=== PATIENT | male | born 1940 | race Caucasian/White ===

== ENCOUNTER 2023-12-05 11:34 | Outpatient (AMB) | payer MEDICARE, SELFPAY ==
--- NOTE | 2023-12-05 11:36 | HO.NEPHOV ---
HPI HPI Comments History of Present Illness Details I had the privilege of seeing Stanislaw Zepeda, who prefers to be known as Chris in consultation for his chronic kidney disease and labile hypertension. He is known to have hypertension for a long time. He has been taking metoprolol succinate 25 mg daily and amlodipine 5 mg daily. His serum potassium has been 5. He keeps track of his serum creatinine and blood pressure for the last 15 years. His serum creatinine has gone up a bit and his blood pressure control has been labile lately. He had multiple tick bites recently and he thinks his blood pressure has been higher since those tick bites. He has no history of hypokalemia, uncontrolled thyroid disorders, hypercalcemia, obstructive sleep apnea, hematuria or pedal edema. He has history of nephrolithiasis. He does not take any excessive nonsteroidal anti-inflammatories. He is cautious with his sodium in the diet. He has no history of coronary artery disease, carotid stenosis, congestive heart failure, CVA, peripheral arterial disease. He is compliant with his medications. He has a renal cyst which he undergoes surveillance ultrasound and it has unchanged its characteristics. He is quite active. He feels well. [facility] Medical History (Updated 12/05/23 @ 13:42 by Mati Jerez MD) History of kidney stones Hypertension Hyperlipidemia History of colon polyps Chronic kidney disease, stage 3 Surgical History (Updated 12/05/23 @ 11:45 by Mine Smith MA) H/O colonoscopy Family History (Updated 12/05/23 @ 11:45 by Mine Smith MA) Father Diabetes Pancreatic cancer Social History (Updated 12/05/23 @ 11:46 by Mine Smith MA) Alcohol intake: current Patient Tobacco Use Status: Never used Tobacco Vital Signs 12/05/23 11:39 Height 5 ft 7 in Weight 186 lb 2 oz BMI 29.1 BP 150/70 H Blood Pressure Location Rt brachial Position Sitting Pulse 71 Pulse Source Pulse Oximeter Pulse Oximetry (%) 96 Oxygen Delivery Method Room Air Physical Exam Vital Signs: Last Vital Signs Pulse 71 12/05/23 11:39 BP 150/70 H 12/05/23 11:39 Pulse Ox 96 12/05/23 11:39 Oxygen Delivery Method Room Air 12/05/23 11:39 BMI result Body Mass Index 29.1 Const General: comfortable and no acute distress Orientation/consciousness: patient oriented x3 HEENT Head: Yes normocephalic Mouth: Normal oral and palatal mucosa present Eyes EOM: EOMs intact bilaterally Neck Neck: Yes supple Resp Auscultation: clear to auscultation bilaterally Cardio Jugular venous distension: no JVD Rate: regular rate GI Palpation (GI): Soft to palpation Auscultation: normal bowel sounds General: Yes no CVA tenderness Back/Spine/Pelvis Back: no CVA tenderness Skin General skin exam: no rashes or lesions noted Neuro General: patient oriented x3 and moves all extremities Extrem General: Yes no pedal edema Assessment & Plan Assessment & Plan (1) Chronic kidney disease, stage 3: Code(s): N18.30 - Chronic kidney disease, stage 3 unspecified Qualifiers: Chronic kidney disease stage 3 subtype: stage 3a (GFR 45-59) Qualified Code(s): N18.31 - Chronic kidney disease, stage 3a (2) Hypertension: Code(s): I10 - Essential (primary) hypertension Qualifiers: Hypertension type: primary hypertension Qualified Code(s): I10 - Essential (primary) hypertension (3) Renal cyst: Code(s): N28.1 - Cyst of kidney, acquired Plan Chris has hypertension for a long time. 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 He never had a Doppler of renal arteries which I ordered. His serum potassium is 5. I increased his amlodipine to 10 mg. I also ordered 24 hour urine collection for creatinine clearance. He most likely will need ultrasound of the renal arteries in the future which I plan to order 90s after next visit. I will not initiate him on any CALISTA inhibitor or ARB unless his serum potassium is lower. He has not known to have congestive heart failure or coronary artery disease. He should be on a low-sodium diet given history of hypertension and nephrolithiasis. He may have to initiate him on chlorthalidone which should benefit his blood pressure and renal stones. All these have been discussed in detail. Answered all his questions. Follow-up appointment given. Orders: Orders Creatinine Clearance Urine Today N18.30 - Chronic kidney disease, stage 3 unspecified Electrolytes Today N18.30 - Chronic kidney disease, stage 3 unspecified Creatinine Today N18.30 - Chronic kidney disease, stage 3 unspecified Blood Urea Nitrogen Today N18.30 - Chronic kidney disease, stage 3 unspecified Medications: New amlodipine 10 mg PO DAILY 90 tabs 4RF 90 days Coding Level of Care Code New Pt Level 4 (00599) Diagnoses Stage 3a chronic kidney disease N18.31 Chronic kidney disease stage 3 subtype: stage 3a (GFR 45-59) Primary hypertension I10 Hypertension type: primary hypertension Renal cyst N28.1 Results Reviewed Nephrology Results: No Data to Display
[2023-12-05 11:39] VITALS: BP 150/70; PULSE 71; O2SAT 96; BMI 29.1
== END 2023-12-05 12:26 | disposition home or self-care (01) ==
PROVIDERS: PCP Family Medicine; Referring Provider Family Medicine; Visit Provider Internal Medicine Nephrology
DX: N18.31 Chronic kidney disease, stage 3a (principal); I10 Essential (primary) hypertension; N28.1 Cyst of kidney, acquired
CPT/HCPCS: 99204

== ENCOUNTER → 2023-12-05 11:34 | Outpatient (BNVA) | payer MEDICARE, SELFPAY | PROVIDERS: PCP Family Medicine; Referring Provider Family Medicine; Visit Provider Internal Medicine Nephrology | DX: I12.9 Hypertensive chronic kidney disease with stage 1 through stage 4 chronic kidney disease, or unspecified chronic kidney disease (principal); N18.31 Chronic kidney disease, stage 3a; N28.1 Cyst of kidney, acquired | CPT/HCPCS: 99202 ==

== ENCOUNTER 2024-01-02 10:48 | Outpatient (AMB) | payer MEDICARE, SELFPAY ==
--- NOTE | 2024-01-02 11:18 | HO.NEPHOV ---
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 He is known to have hypertension for a long time. He has been taking metoprolol succinate 25 mg daily and amlodipine 5 mg daily. Dose of amlodipine had been increased to 10 mg at the last visit and his blood pressure is currently at goal. His serum potassium has been 5. He keeps track of his serum creatinine and blood pressure for the last 15 years. His serum creatinine has settled to baseline. His creatinine clearance decent. He has no history of hypokalemia, uncontrolled thyroid disorders, hypercalcemia, obstructive sleep apnea, hematuria or pedal edema. He has history of nephrolithiasis. He does not take any excessive nonsteroidal anti-inflammatories. He is cautious with his sodium in the diet. He has no history of coronary artery disease, carotid stenosis, congestive heart failure, CVA, peripheral arterial disease. He is compliant with his medications. He has a renal cyst which he undergoes surveillance ultrasound and it has unchanged its characteristics. He is quite active. He feels well. [facility] Medical History (Updated 12/05/23 @ 13:42 by Mati Jerez MD) History of kidney stones Hypertension Hyperlipidemia History of colon polyps Chronic kidney disease, stage 3 Surgical History H/O colonoscopy Family History Father Diabetes Pancreatic cancer Social History Alcohol intake: current Patient Tobacco Use Status: Never used Tobacco Physical Exam Vital Signs: Last Vital Signs Pulse 66 01/02/24 11:19 BP 120/70 01/02/24 11:19 Pulse Ox 97 01/02/24 11:19 Oxygen Delivery Method Room Air 01/02/24 11:19 BMI result Body Mass Index 29.3 Const General: comfortable and no acute distress Orientation/consciousness: patient oriented x3 HEENT Head: Yes normocephalic Mouth: Normal oral and palatal mucosa present Eyes EOM: EOMs intact bilaterally Neck Neck: Yes supple Resp Auscultation: clear to auscultation bilaterally Cardio Jugular venous distension: no JVD Rate: regular rate GI Palpation (GI): Soft to palpation Auscultation: normal bowel sounds General: Yes no CVA tenderness Back/Spine/Pelvis Back: no CVA tenderness Skin General skin exam: no rashes or lesions noted Neuro General: patient oriented x3 and moves all extremities Extrem General: Yes no pedal edema Results Reviewed Nephrology Results: No Data to Display Assessment & Plan Assessment & Plan (1) Chronic kidney disease, stage 3: Code(s): N18.30 - Chronic kidney disease, stage 3 unspecified Category: Medical Qualifiers: Chronic kidney disease stage 3 subtype: stage 3a (GFR 45-59) Qualified Code(s): N18.31 - Chronic kidney disease, stage 3a (2) Hypertension: Code(s): I10 - Essential (primary) hypertension Category: Medical Qualifiers: Hypertension type: primary hypertension Qualified Code(s): I10 - Essential (primary) hypertension (3) Renal cyst: Code(s): N28.1 - Cyst of kidney, acquired Category: Medical Plan Chris has hypertension for a long time. 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 He never had a Doppler of renal arteries. His serum potassium is 5. His blood pressure is at goal and he should continue current dose of antihypertensive medications. His24 hour urine collection for creatinine clearance was reviewed. He most likely will need ultrasound of the renal arteries in the future which I plan to order with time. I will not initiate him on any CALISTA inhibitor or ARB unless as his serum potassium was high normal. He has not known to have congestive heart failure or coronary artery disease. He should be on a low-sodium diet given history of hypertension and nephrolithiasis. He may have to initiate him on chlorthalidone which should benefit his blood pressure and renal stones. I shall arrange a follow-up ultrasound with time to follow-up his renal cyst. All these have been discussed in detail. Answered all his questions. Follow-up appointment given Orders: Orders Electrolytes Today I10 - Essential (primary) hypertension, N18.31 - Chronic kidney disease, stage 3a, N28.1 - Cyst of kidney, acquired Creatinine Today I10 - Essential (primary) hypertension, N18.31 - Chronic kidney disease, stage 3a, N28.1 - Cyst of kidney, acquired Blood Urea Nitrogen Today I10 - Essential (primary) hypertension, N18.31 - Chronic kidney disease, stage 3a, N28.1 - Cyst of kidney, acquired Coding Level of Care Code Est Pt Level 4 (52535) Diagnoses Stage 3a chronic kidney disease N18.31 Chronic kidney disease stage 3 subtype: stage 3a (GFR 45-59) Primary hypertension I10 Hypertension type: primary hypertension Renal cyst N28.1
[2024-01-02 11:19] VITALS: BP 120/70; PULSE 66; O2SAT 97; BMI 29.3
== END 2024-01-02 11:47 | disposition home or self-care (01) ==
PROVIDERS: PCP Family Medicine; Visit Provider Internal Medicine Nephrology
DX: N18.31 Chronic kidney disease, stage 3a (principal); I10 Essential (primary) hypertension; N28.1 Cyst of kidney, acquired
CPT/HCPCS: 99214

== ENCOUNTER → 2024-01-02 10:48 | Outpatient (BNVA) | payer MEDICARE, SELFPAY | PROVIDERS: PCP Family Medicine; Visit Provider Internal Medicine Nephrology | DX: I12.9 Hypertensive chronic kidney disease with stage 1 through stage 4 chronic kidney disease, or unspecified chronic kidney disease (principal); N18.31 Chronic kidney disease, stage 3a; N28.1 Cyst of kidney, acquired | CPT/HCPCS: 99212 ==

== ENCOUNTER 2024-05-07 09:37 | Outpatient (AMB) | payer MEDICARE, SELFPAY ==
[2024-05-07 09:43] VITALS: BP 120/70; PULSE 67; O2SAT 96; BMI 29.0
--- NOTE | 2024-05-07 09:43 | HO.NEPHOV ---
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 He is known to have hypertension for a long time. his blood pressure is currently at goal on current medications. He keeps track of his serum creatinine and blood pressure for the last 15 years. His serum creatinine has settled to baseline. His creatinine clearance is decent. He has no history of hypokalemia, uncontrolled thyroid disorders, hypercalcemia, obstructive sleep apnea, hematuria or pedal edema. He has history of nephrolithiasis. He does not take any excessive nonsteroidal anti-inflammatories. He is cautious with his sodium in the diet. He has no history of coronary artery disease, carotid stenosis, congestive heart failure, CVA, peripheral arterial disease. He is compliant with his medications. He has a renal cyst which he undergoes surveillance ultrasound and it has unchanged its characteristics. He is quite active. He feels well. [facility] Medical History (Updated 12/05/23 @ 13:42 by Mati Jerez MD) History of kidney stones Hypertension Hyperlipidemia History of colon polyps Chronic kidney disease, stage 3 Surgical History H/O colonoscopy Family History Father Diabetes Pancreatic cancer Social History Alcohol intake: current Patient Tobacco Use Status: Never used Tobacco Review of Systems Const All systems reviewed & are unremarkable except as noted in HPI and below Physical Exam Vital Signs: Last Vital Signs Pulse 67 05/07/24 09:43 BP 142/70 H 05/07/24 09:43 Pulse Ox 96 05/07/24 09:43 Oxygen Delivery Method Room Air 05/07/24 09:43 BMI result Body Mass Index 29.0 Const General: comfortable and no acute distress Orientation/consciousness: patient oriented x3 HEENT Head: Yes normocephalic Mouth: Normal oral and palatal mucosa present Eyes EOM: EOMs intact bilaterally Neck Neck: Yes supple Resp Auscultation: clear to auscultation bilaterally Cardio Jugular venous distension: no JVD Rate: regular rate GI Palpation (GI): Soft to palpation Auscultation: normal bowel sounds General: Yes no CVA tenderness Back/Spine/Pelvis Back: no CVA tenderness Skin General skin exam: no rashes or lesions noted Neuro General: patient oriented x3 and moves all extremities Extrem General: Yes no pedal edema Results Reviewed Nephrology Results: No Data to Display Assessment & Plan Assessment & Plan (1) Chronic kidney disease, stage 3: Code(s): N18.30 - Chronic kidney disease, stage 3 unspecified Category: Medical Qualifiers: Chronic kidney disease stage 3 subtype: stage 3a (GFR 45-59) Qualified Code(s): N18.31 - Chronic kidney disease, stage 3a (2) Hypertension: Code(s): I10 - Essential (primary) hypertension Category: Medical Qualifiers: Hypertension type: primary hypertension Qualified Code(s): I10 - Essential (primary) hypertension (3) Renal cyst: Code(s): N28.1 - Cyst of kidney, acquired Category: Medical Plan Chris has hypertension for a long time. 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 His blood pressure is at goal and he should continue current dose of antihypertensive medications. His 24 hour urine collection for creatinine clearance was reviewed. He most likely will need ultrasound of the renal arteries in the future which I plan to order with time. He has not known to have congestive heart failure or coronary artery disease. He should be on a low-sodium diet given history of hypertension and nephrolithiasis. He may have to initiate him on chlorthalidone which should benefit his blood pressure and renal stones. I shall arrange a follow-up ultrasound with time to follow-up his renal cyst. All these have been discussed in detail. Answered all his questions. Follow-up appointment given Orders: Orders Creatinine Today I10 - Essential (primary) hypertension, N18.31 - Chronic kidney disease, stage 3a, N28.1 - Cyst of kidney, acquired Blood Urea Nitrogen Today I10 - Essential (primary) hypertension, N18.31 - Chronic kidney disease, stage 3a, N28.1 - Cyst of kidney, acquired Electrolytes Today I10 - Essential (primary) hypertension, N18.31 - Chronic kidney disease, stage 3a, N28.1 - Cyst of kidney, acquired Coding Level of Care Code Est Pt Level 4 (04555) Diagnoses Stage 3a chronic kidney disease N18.31 Chronic kidney disease stage 3 subtype: stage 3a (GFR 45-59) Primary hypertension I10 Hypertension type: primary hypertension Renal cyst N28.1
== END 2024-05-07 10:06 | disposition home or self-care (01) ==
PROVIDERS: PCP Family Medicine; Visit Provider Internal Medicine Nephrology
DX: N18.31 Chronic kidney disease, stage 3a (principal); I10 Essential (primary) hypertension; N28.1 Cyst of kidney, acquired
CPT/HCPCS: 99214

== ENCOUNTER → 2024-05-07 09:37 | Outpatient (BNVA) | payer MEDICARE, SELFPAY | PROVIDERS: PCP Family Medicine; Visit Provider Internal Medicine Nephrology | DX: I12.9 Hypertensive chronic kidney disease with stage 1 through stage 4 chronic kidney disease, or unspecified chronic kidney disease (principal); N18.31 Chronic kidney disease, stage 3a; N28.1 Cyst of kidney, acquired | CPT/HCPCS: 99212 ==

== ENCOUNTER 2025-01-14 14:02 | Outpatient (AMB) | payer MEDICARE, SELFPAY ==
--- OUTSIDE RECORDS SUMMARY | 2025-01-14 14:04 | XMS_ITS | Clinical Summary ---
Author Organization [facility] [address] Address [address] [place] [address] Phone Care Team Providers Care Marketing Manager Name Role Phone Joel Dick DO Primary Care Provider [phone] Encounters Date Type Department Care Team Description 01/07/2025 Telephone Gastroenterology - [address] [id number] Nehemias Perez PA MRI RECALL from Last 3 Months Social History Tobacco Use Types Packs/Day Years Used Date Smoking Tobacco: Never Assessed Sex and Gender Information Value Date Recorded Sex Assigned at Male 01/07/2025 9:37 AM EDT Legal Sex Male 8:30 PM EST Gender Identity Male 01/07/2025 9:37 AM EDT Sexual Orientation Not on file Plan of Treatment Health Maintenance Due Date Last Done Comments DTaP,Tdap,and Td Vaccines (1 - Tdap) 1961 Pneumococcal Vaccine: 50+ Ye ars (1 of 1 - PCV) 01/16/1992 Zoster Vaccines (1 of 2) 01/16/1992 RSV Immunization Adult Patie nts (1 - 1-dose 75+ series) 2017 Cholesterol Screening (Lipid Panel) 07/27/2022 Depression Screening 07/27/2022 Falls Risk Assessment 07/27/2022 Medicare Annual Wellness Visit 07/27/2022 Social Influencers of Health Screening 07/27/2022 COVID-19 Vaccine (1 - 2023-2 5 season) 2024 Influenza Vaccine (Season Ended) 2025 HIB Vaccines Aged Out No longer eligi ble based on patient's age to complete this topic HPV Vaccines Aged Out No longer eligi ble based on patient's age to complete this topic Hepatitis A Vaccines Aged Out No long er eligible based on patient's age to complete this topic Hepatitis B Vaccines Aged Out No long er eligible based on patient's age to complete this topic IPV Vaccines Aged Out No longer eligi ble based on patient's age to complete this topic MMR Vaccines Aged Out No longer eligi ble based on patient's age to complete this topic Meningococcal ACWY Vaccine Aged Out N o longer eligible based on patient's age to complete this topic Meningococcal B Vaccine Aged Out No l onger eligible based on patient's age to complete this topic RSV Immunization Patients Un bharti 20 months Aged Out No longer eligible b ased on patient's age to complete this topic Varicella Vaccines Aged Out No longer eligible based on patient's age to complete this topic Insurance MEDICARE [facility] Care Teams Marketing Manager Relationship Specialty Start Date End Date Joel Dick DO [address] [place] [phone] PCP - General Family Medicine 01/07/25
--- NOTE | 2025-01-14 14:25 | HO.NEPHOV ---
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 He is known to have hypertension for a long time. his blood pressure is currently at goal on current medications. He keeps track of his serum creatinine and blood pressure for the last 15 years. He has no history of hypokalemia, uncontrolled thyroid disorders, hypercalcemia, obstructive sleep apnea, hematuria or pedal edema. He has history of nephrolithiasis. He does not take any excessive nonsteroidal anti-inflammatories. He is cautious with his sodium in the diet. He has no history of coronary artery disease, carotid stenosis, congestive heart failure, CVA, peripheral arterial disease. He is compliant with his medications. He has a renal cyst which he undergoes surveillance ultrasound and it has unchanged its characteristics. He is quite active. He feels his head is foggy after taking these BP medications and wants the dose reduced. He otherwise feels well. [facility] Medical History (Updated 12/05/23 @ 13:42 by Mati Jerez MD) History of kidney stones Hypertension Hyperlipidemia History of colon polyps Chronic kidney disease, stage 3 Surgical History H/O colonoscopy Family History Father Diabetes Pancreatic cancer Social History Alcohol intake: current Patient Tobacco Use Status: Never used Tobacco Review of Systems Const All systems reviewed & are unremarkable except as noted in HPI and below Physical Exam Vital Signs: Last Vital Signs Pulse 81 01/14/25 14:28 BP 120/70 01/14/25 14:28 Pulse Ox 96 01/14/25 14:28 Oxygen Delivery Method Room Air 01/14/25 14:28 BMI result Body Mass Index 29.1 Const General: comfortable and no acute distress Orientation/consciousness: patient oriented x3 HEENT Head: Yes normocephalic Mouth: Normal oral and palatal mucosa present Eyes EOM: EOMs intact bilaterally Neck Neck: Yes supple Resp Auscultation: clear to auscultation bilaterally Cardio Jugular venous distension: no JVD Rate: regular rate GI Palpation (GI): Soft to palpation Auscultation: normal bowel sounds General: Yes no CVA tenderness Back/Spine/Pelvis Back: no CVA tenderness Skin General skin exam: no rashes or lesions noted Neuro General: patient oriented x3 and moves all extremities Extrem General: Yes no pedal edema Results Reviewed Nephrology Results: No Data to Display Assessment & Plan Assessment & Plan (1) Chronic kidney disease, stage 3: Code(s): N18.30 - Chronic kidney disease, stage 3 unspecified Category: Medical Qualifiers: Chronic kidney disease stage 3 subtype: stage 3a (GFR 45-59) Qualified Code(s): N18.31 - Chronic kidney disease, stage 3a (2) Hypertension: Code(s): I10 - Essential (primary) hypertension Category: Medical Qualifiers: Hypertension type: primary hypertension Qualified Code(s): I10 - Essential (primary) hypertension Plan Chris has hypertension for a long time. 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 His blood pressure is at goal and he should continue current dose of antihypertensive medications. His 24 hour urine collection for creatinine clearance was reviewed. He most likely will need ultrasound of the renal arteries in the future which I plan to order with time. He has not known to have congestive heart failure or coronary artery disease. He should be on a low-sodium diet given history of hypertension and nephrolithiasis. He may have to initiate him on chlorthalidone which should benefit his blood pressure and renal stones. I shall arrange a follow-up ultrasound with time to follow-up his renal cyst. I reduced his Amlodipine to 5 mg daily given head fogginess with all these BP medications. All these have been discussed in detail. Answered all his questions. Follow-up appointment given Orders: Orders Blood Urea Nitrogen 3 Months I10 - Essential (primary) hypertension, N18.31 - Chronic kidney disease, stage 3a Electrolytes 3 Months I10 - Essential (primary) hypertension, N18.31 - Chronic kidney disease, stage 3a Creatinine 3 Months I10 - Essential (primary) hypertension, N18.31 - Chronic kidney disease, stage 3a Coding Level of Care Code Est Pt Level 4 (63342) Diagnoses Stage 3a chronic kidney disease N18.31 Chronic kidney disease stage 3 subtype: stage 3a (GFR 45-59) Primary hypertension I10 Hypertension type: primary hypertension
[2025-01-14 14:28] VITALS: BP 120/70; PULSE 81; O2SAT 96; BMI 29.1
== END 2025-01-14 14:57 | disposition home or self-care (01) ==
LOC: HO.HKA 14:02
PROVIDERS: PCP Family Medicine; Visit Provider Internal Medicine Nephrology
DX: N18.31 Chronic kidney disease, stage 3a (principal); I10 Essential (primary) hypertension
CPT/HCPCS: 99214

== ENCOUNTER → 2025-01-14 14:02 | Outpatient (BNVA) | payer MEDICARE, SELFPAY | PROVIDERS: PCP Family Medicine; Visit Provider Internal Medicine Nephrology | DX: I12.9 Hypertensive chronic kidney disease with stage 1 through stage 4 chronic kidney disease, or unspecified chronic kidney disease (principal); N18.31 Chronic kidney disease, stage 3a; I73.9 Peripheral vascular disease, unspecified; Z86.73 Personal history of transient ischemic attack (TIA), and cerebral infarction without residual deficits | CPT/HCPCS: 99212 ==

== ENCOUNTER 2025-04-15 11:14 | Outpatient (AMB) | payer MEDICARE, SELFPAY ==
--- OUTSIDE RECORDS SUMMARY | 2025-04-15 11:21 | XMS_ITS | Clinical Summary ---
Author Organization [facility] [address] [facility] Address [address] [place] [address] Phone Care Team Providers Care Tobacco Stemmer Machine Name Role Phone Dick, Gary Primary Care Provider [phone] Encounters Date Type Department Care Team Description 03/28/2025 8:57 AM EDT - 03/28/2025 11:59 PM EDT Hospital Encounter [facility] MRI [address] [place] [address] Pancreatic lesion Discharge Disposition: Home or Self Care from Last 3 Months Social History Tobacco [...] series) 2017 Cholesterol Screening (Lipid Panel) 07/27/2022 Falls Risk Assessment 07/27/2022 Medicare Annual Wellness Visit 07/27/2022 Social Influencers of Health Screening 07/27/2022 COVID-19 Vaccine (1 - 2023-2 5 season) 2024 Depression Screening 08/25/2024 Hypertension/CHF/CAD Annual BMP Blood Test 03/28/2025 Influenza Vaccine (#1) 2025 HIB Vaccines Aged Out No longer [...] on patient's age to complete this topic Procedures Procedure Name Priority Date/Time Associated Diagnosis Comments MR ABDOMEN WO AND W CONTRAST Routine 03/28/2025 10:38 AM EDT Pancreatic lesion from Last 3 Months Results * MR Abdomen wo and w Contrast (03/28/2025 10:38 AM EDT) Anatomical Region Laterality Modality Body Magnetic Resonan ce 04/02/2025 8:47 AM EDT Impressions 04/02/2025 9:08 AM EDT No significant interval change in several nonenhancing fluid signal lesions in the pancreas. 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 Guidelines recommend biennial follow-up of these lesions in patients over 80 years of age for a total of 4 years. -------- FINAL REPORT -------- Dictated By: Marshall Jeff Dictated Date: 04/02/2025 08:47 ET Assigned Physician: Marshall Jeff Reviewed and Electronically Signed By: Marshall Jeff Signed Date: 04/02/2025 09:08 ET Workstation ID: [id number] Transcribed By: Self Edit Transcribed Date: 04/02/2025 09:00 ET Narrative 04/02/2025 9:08 AM EDT PROCEDURE: MRI of the abdomen with intravenous contrast. HISTORY: PANCREATIC CYSTIC LESIONS. TECHNIQUE: Multiplanar multisequence MRI of the abdomen with and without intravenous contrast. IV contrast dose: 15 mL Dotarem from a 15 mL vial with 0 mL discarded. COMPARISON: 06/12/2024. FINDINGS: LOWER THORAX: Normal. LIVER: No focal lesion. No evidence of steatosis on out of phase imaging. The portal and hepatic veins are patent. BILIARY: Normal gallbladder. Normal caliber biliary tree. No ductal dilatation or filling defect. PANCREAS: Scattered small cystic lesions. The largest is located in the anterior pancreatic neck and measures up to 12 mm. These appear similar to the previous study. The MRCP is somewhat limited by motion, but some of these lesions appear to communicate with main duct. No ductal dilatation. SPLEEN: Normal. ADRENAL GLANDS: Normal. KIDNEYS: Bilateral renal cortical cysts. The largest arises from the upper pole of the right kidney measures 10.2 cm transversely. Visible portions of the collecting systems are normal. RETROPERITONEUM: No mass or lymphadenopathy. VASCULATURE: No aneurysm. BOWEL/MESENTERY: Scattered sigmoid diverticula. ABDOMINAL WALL: Visible portions are normal. BONES: Mild degenerative changes of the spine. No visible bony lesion. Procedure Note Marshall Jeff MD - 04/02/2025 PROCEDURE: MRI of the abdomen with intravenous contrast. HISTORY: PANCREATIC CYSTIC LESIONS. TECHNIQUE: Multiplanar multisequence MRI of the abdomen with and withoutintravenous contrast. IV contrast dose: 15 mL Dotarem from a 15 mL vial with 0 mL discarded. COMPARISON: 06/12/2024. FINDINGS: LOWER THORAX: Normal. LIVER: No focal lesion. No evidence of steatosis on out of phase imaging.The portal and hepatic veins are patent. BILIARY: Normal gallbladder. Normal caliber biliary tree. No ductaldilatation or filling defect. PANCREAS: Scattered small cystic lesions. The largest is located in theanterior pancreatic neck and measures up to 12 mm. These appear similarto the previous study. The MRCP is somewhat limited by motion, but someof these lesions appear to communicate with main duct. No ductaldilatation. SPLEEN: Normal. ADRENAL GLANDS: Normal. KIDNEYS: Bilateral renal cortical cysts. The largest arises from theupper pole of the right kidney measures 10.2 cm transversely. Visibleportions of the collecting systems are normal. RETROPERITONEUM: No mass or lymphadenopathy. VASCULATURE: No aneurysm. BOWEL/MESENTERY: Scattered sigmoid diverticula. ABDOMINAL WALL: Visible portions are normal. BONES: Mild degenerative changes of the spine. No visible bony lesion. IMPRESSION: No significant interval change in several nonenhancing fluid signallesions in the pancreas. 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 Guidelines recommendbiennial follow-up of these lesions in patients over 80 years of age for atotal of 4 years. -------- FINAL REPORT -------- Dictated By: Marshall Jeff Dictated Date: 04/02/2025 08:47 ET Assigned Physician: Marshall Jeff Reviewed and Electronically Signed By: Marshall Jeff Signed Date: 04/02/2025 09:08 ET Workstation ID: [id number] Transcribed By: Self Edit Transcribed Date: 04/02/2025 09:00 ET us Roya Dunbar MD IMG MRI PROCEDURES Final Resul t from Last 3 Months Insurance MEDICARE [facility] Care Teams Tobacco Stemmer Machine Relationship Specialty Start Date End Date Joel Dick DO [address] [place] [phone] PCP - General Family Medicine 01/07/25
--- NOTE | 2025-04-15 11:22 | HO.NEPHOV_ITS ---
Vital Signs 04/15/25 11:25 Height 5 ft 7 in Weight 187 lb 8 oz BMI 29.4 BP 130/70 Blood Pressure Location Rt brachial Position Sitting Pulse 79 Pulse Source Pulse Oximeter Pulse Oximetry (%) 98 Oxygen Delivery Method Room Air Intake Visit Reasons: 3 MO FU-Conf Sub Arc Operator Required: No Accompanied by: Self / Same As Patient Allergies No Known Allergies Allergy (Verified 04/15/25 11:25) HPI Comments Details: I had the privilege of seeing Stanislaw Zepeda, who prefers to be known as Chris in follow up for his chronic kidney disease and labile hypertension. He is known to have hypertension for a long time. his blood pressure is currently at goal on current medications. He keeps track of his serum creatinine and blood pressure for the last 15 years. He has no history of hypokalemia, uncontrolled thyroid disorders, hypercalcemia, obstructive sleep apnea, hematuria or pedal edema. He has history of nephrolithiasis. He does not take any excessive nonsteroidal anti-inflammatories. He is cautious with his sodium in the diet. He has no history of coronary artery disease, carotid stenosis, congestive heart failure, CVA, peripheral arterial disease. He is compliant with his medications. He has a renal cyst which he undergoes surveillance ultrasound and it has unchanged its characteristics. He is quite active. He otherwise feels well. [facility] Medical History (Updated 12/05/23 @ 13:42 by Mati Jerez MD) History of kidney stones Hypertension Hyperlipidemia History of colon polyps Chronic kidney disease, stage 3 Surgical History H/O colonoscopy Family History Father Diabetes Pancreatic cancer Social History Alcohol intake: current Patient Tobacco Use Status: Never used Tobacco Review of Systems Const All systems reviewed & are unremarkable except as noted in HPI and below Physical Exam Vital Signs: Last Vital Signs Pulse 79 04/15/25 11:25 BP 130/70 04/15/25 11:25 Pulse Ox 98 04/15/25 11:25 Oxygen Delivery Method Room Air 04/15/25 11:25 BMI result Body Mass Index 29.4 Const General: comfortable and no acute distress Orientation/consciousness: patient oriented x3 HEENT Head: Yes normocephalic Mouth: Normal oral and palatal mucosa present Eyes EOM: EOMs intact bilaterally Neck Neck: Yes supple Resp Auscultation: clear to auscultation bilaterally Cardio Jugular venous distension: no JVD Rate: regular rate GI Palpation (GI): Soft to palpation Auscultation: normal bowel sounds General: Yes no CVA tenderness Back/Spine/Pelvis Back: no CVA tenderness Skin General skin exam: no rashes or lesions noted Neuro General: patient oriented x3 and moves all extremities Extrem General: Yes no pedal edema Assessment & Plan Assessment & Plan (1) Chronic kidney disease, stage 3: Code(s): N18.30 - Chronic kidney disease, stage 3 unspecified Category: Medical Qualifiers: Chronic kidney disease stage 3 subtype: stage 3a (GFR 45-59) Qualified Code(s): N18.31 - Chronic kidney disease, stage 3a (2) Renal cyst: Code(s): N28.1 - Cyst of kidney, acquired Category: Medical (3) Hypertension: Code(s): I10 - Essential (primary) hypertension Category: Medical Qualifiers: Hypertension type: primary hypertension Qualified Code(s): I10 - Essential (primary) hypertension Plan Chris has hypertension for a long time. 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 He has marginal rise in serum creatinine with rise in BUN. I asked him to increase hydration and repeat labs in 2 M. His blood pressure is at goal and he should continue current dose of antihypertensive medications. He most likely will need ultrasound of the renal arteries in the future which I plan to order with time. He has not known to have congestive heart failure or coronary artery disease. He should be on a low-sodium diet given history of hypertension and nephrolithiasis. He may have to initiate him on chlorthalidone which should benefit his blood pressure and renal stones. He should see a ENT MD to R/O middle ear issues. Answered all his questions. Follow-up appointment given Coding Level of Care Code Est Pt Level 4 (17428) Diagnoses Stage 3a chronic kidney disease N18.31 Chronic kidney disease stage 3 subtype: stage 3a (GFR 45-59) Renal cyst N28.1 Primary hypertension I10 Hypertension type: primary hypertension
[2025-04-15 11:25] VITALS: BP 130/70; PULSE 79; O2SAT 98; BMI 29.4
== END 2025-04-15 11:49 | disposition home or self-care (01) ==
LOC: HO.HKA 11:15
PROVIDERS: PCP Family Medicine; Visit Provider Internal Medicine Nephrology
DX: N18.31 Chronic kidney disease, stage 3a (principal); N28.1 Cyst of kidney, acquired; I10 Essential (primary) hypertension
CPT/HCPCS: 99214

== ENCOUNTER → 2025-04-15 11:14 | Outpatient (BNVA) | payer MEDICARE, SELFPAY | PROVIDERS: PCP Family Medicine; Visit Provider Internal Medicine Nephrology | DX: I12.9 Hypertensive chronic kidney disease with stage 1 through stage 4 chronic kidney disease, or unspecified chronic kidney disease (principal); N18.31 Chronic kidney disease, stage 3a; N28.1 Cyst of kidney, acquired | CPT/HCPCS: 99212 ==

== ENCOUNTER 2025-04-18 11:50 | Outpatient (AMB) | payer MEDICARE, SELFPAY ==
--- NOTE | 2025-04-18 11:54 | A.OFFPC_ITS ---
Vital Signs 04/18/25 12:06 Height 5 ft 7 in Weight 187 lb 6 oz BMI 29.3 BP 126/82 Blood Pressure Location Lt brachial Position Sitting Pulse 84 Pulse Source Pulse Oximeter Temp 98.5 F Temp Source Temporal Artery Scan Pulse Oximetry (%) 95 Oxygen Delivery Method Room Air Intake Visit Reasons: CPE? Intake Note: Stanislaw presents in the office today to establish care. Allergies No Known Allergies Allergy (Verified 04/18/25 12:02) Tobacco use date assessed: 04/18/25 Fall risk assessment: No Falls in past year Last assessed Fall Risk: 04/18/25 Dental Screening Dental Screen Date: 04/18/25 Did you have a dental visit in the last 12 months?: Yes Did you have a dental problem in the last 6 months where you did not have access to dental care?: No Was dental information given to patient?: Patient has dentist HPI HPI Comments History of Present Illness Details This is an 85-year-old male with a past medical history of a renal cyst, hypertension, CKD stage 3 and hyperlipidemia presenting to establish care. He transferred from Dr. Dick. Renal cyst, hypertension, CKD stage 3-followed by Dr. Jerez. Hypertension is controlled. He is on amlodipine 5 mg (half a 10 mg tablet) and metoprolol succinate ER 25 mg daily. Cardiovascular-patient followed at [facility]. Denies history of heart attack/stent/CABG. Patient endorses nearly constant, mild lightheaded feeling that has been going on for at least several months. He was requesting referral to ENT, but he denies tinnitus, hearing loss or ear pain associated with it. Denies chest pain or shortness of breath. Symptoms do not worsen with exertion. Denies syncope. He has a very active person. He builds houses. Nonsmoker. His next appointment is in July. Hyperlipidemia is treated with simvastatin 20 mg daily. Last LDL was 117. It was recommended that he increase his statin, but he declines to do so. He had severe myalgias on rosuvastatin and atorvastatin. Pancreatic cyst-this is being monitored. He brought the MRI abdomen without and with contrast from 04/02/2025 which showed no significant interval change in several nonenhancing fluid signal lesions in the pancreas. 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 Elevated PSA-followed by urology. They attributed this to age. He has a follow up scheduled. ROS: Constitutional: No unexplained weight loss, fever, chills, fatigue or night sweats. Eyes: No vision changes, blurry vision, double vision, eye pain, eye redness, eye discharge. ENT: No hearing loss, sneezing, congestion, runny nose or sore throat. Respiratory: No shortness of breath, cough or sputum production. Cardiovascular: No chest pain, chest pressure or chest discomfort. No palpitations or pedal edema. Gastrointestinal: No anorexia, nausea, vomiting or diarrhea. No abdominal pain or blood in stool. Genitourinary: No dysuria, hematuria, urinary frequency. Neurologic: No headache, seizures, tremors, unilateral weakness, numbness, tingling, difficulty speaking Hematologic/Lymphatics: No bleeding or bruising.. Endocrine: No cold or heat intolerance. No polyuria or polydipsia. Physical exam: Constitutional: Alert, in no distress.. Eyes: Pupils are equal, round and reactive to light. Extraocular muscles intact. Ear, Nose and Throat: Canals clear. TMs normal. Normal nasal mucosa. No nasal discharge. No oral lesions. Neck: Supple, Full range of motion. No lymphadenopathy. No palpable thyroid masses. Respiratory: Clear to auscultation. Cardiovascular: Irregularly irregular rhythm, no murmurs, no carotid bruits on exam Gastrointestinal: Abdomen soft, non-tender, non-distended. Normal bowel sounds. No palpable masses. Neurologic: No focal neurological deficits. Symmetric patellar reflexes. Moves all extremities spontaneously. Sensation intact bilaterally. Extremities: Warm and well perfused. No clubbing, cyanosis or edema. Intact upper and lower extremity peripheral pulses. Psychiatric: Normal mood and affect [facility] Medical History (Updated 04/18/25 @ 13:55 by KYLAH Remy) Pancreatic cyst New onset atrial fibrillation Lightheaded Elevated PSA History of kidney stones Hypertension Hyperlipidemia History of colon polyps Chronic kidney disease, stage 3 Surgical History H/O colonoscopy Family History (Updated 04/18/25 @ 12:05 by Radha Dumont MA) Father Diabetes Pancreatic cancer Social History (Updated 04/18/25 @ 12:06 by Radha Dumont MA) Housing: House Alcohol intake: current Patient Tobacco Use Status: Never used Tobacco e-Cigarette/Vaping Use: Never Used Second Hand Smoke Exposure: No service: No Current occupational status: retired Current occupational exposures/hazards: No Cognitive needs: No Hearing needs: No Vision needs: No Questionnaire PHQ-9 Over the last 2 weeks, how often have you been bothered by any of the following problems? 1. Little interest or pleasure in doing things: not at all 2. Feeling down, depressed, or hopeless: not at all 3. Trouble falling or staying asleep, or sleeping too much: not at all 4. Feeling tired or having little energy: not at all 5. Poor appetite or overeating: not at all 6. Feeling bad about yourself - or that you are a failure or have let yourself or your family down: not at all 7. Trouble concentrating on things, such as reading the newspaper or watching television: not at all 8. Moving or speaking so slowly that other people could have noticed. Or the opposite - being so fidgety or restless that you have been moving around a lot more than usual: not at all 9. Thoughts that you would be better off or of hurting yourself in some way: not at all Total score: 0 Depression Screening Interpretation: Negative Depression Screening Done: Yes 55490 - PHQ-9 Billing: Yes Source: Developed by Drs. Cristi Osullivan, Reshma Lopez, Lele Sanchez and colleagues, with an educational rolan from tic. Thrive Questionnaire Date Thrive assessed: 04/18/25 I am a: Patient What is your living situation today?: I have a steady place to live Within the past 12 months, did the food you bought not last and you didn't have the money to get more?: Never true Within the past 12 months, did you worry whether your food would run out before you got money to buy more?: Never true Do you have trouble paying for medicines?: No Do you have trouble getting transportation to medical appointments?: No Do you have trouble paying your heating and electricity bill?: No Do you have trouble taking care of your child, family member or friend?: No Do you have trouble with day-to-day activities such as bathing, preparing meals, shopping, managing finances, etc.?: No Are you currently unemployed and looking for a job?: No Are you interested in more education?: Yes Please select the resources that you would like help with: None Currently or been in a relationship where the following occur: No concerns reported THRIVE Score: 0 AUDIT C Alcohol Use Questionnaire (AUDIT-C) 1. How often do you have a drink containing alcohol?: 2-3 times a week 2. How many drinks containing alcohol do you have on a typical day when you are drinking?: 1 or 2 3. How often do you have six or more drinks on one occasion?: Never Total Score: 3 JAKE-7 AMB Questionnaire JAKE-7 Date JAKE - 7 assessed: 04/18/25 Feeling nervous, anxious, or on edge: 0 = Not at all Not being able to stop or control worryin = Not at all Worrying too much about different things: 0 = Not at all Trouble relaxin = Not at all Being so restless that it is hard to sit still: 0 = Not at all Becoming easily annoyed or irritable: 0 = Not at all Feeling afraid as if something awful might happen: 0 = Not at all Total JAKE-7 score (0-4 normal; 5-9 mild; 10-14 moderate; 15-21 severe): 0 Source: Developed by Drs. Cristi Osullivan, Reshma Lopez, Lele Sanchez and colleagues, with an educational rolan from tic. JAKE-7 Assessment Billing JAKE-7 Assessment Tool: JAKE-7 Assessment 56168 Physical exam (Primary Care) Vital Signs: Last Vital Signs Temp 98.5 F 04/18/25 12:06 Pulse 84 04/18/25 12:06 BP 126/82 04/18/25 12:06 Pulse Ox 95 04/18/25 12:06 Oxygen Delivery Method Room Air 04/18/25 12:06 BMI result Body Mass Index 29.3 Tobacco/Smoking Status: Tobacco use Status Tobacco use date assessed 04/18/25 04/18/25 12:12 Patient Tobacco Use Status Never used Tobacco 04/18/25 12:06 e-Cigarette/Vaping Use Never Used 04/18/25 12:12 PHQ-9: PHQ-9 Score PHQ-9: Total score 0 04/18/25 13:14 Depression Screening Interpretation: Negative Thrive Assessment: Date of Thrive Assessment Date Thrive assessed 04/18/25 04/18/25 12:12 Currently or been in a relationship where the following occur: No concerns reported Office Procedures EKG Details: EKG shows atrial fibrillation with a ventricular rate of 82 beats per minute Reviewed by Dr. Garcia [id number], Complete Coding Level of Care Code New Pt Level 5 (77536) Diagnoses New onset atrial fibrillation I48.91 Stage 3a chronic kidney disease N18.31 Chronic kidney disease stage 3 subtype: stage 3a (GFR 45-59) Hyperlipidemia E78.5 Primary hypertension I10 Hypertension type: primary hypertension Elevated PSA R97.20 Lightheaded R42 Pancreatic cyst K86.2 CPT Codes EKG - CPT: 67666-[id number], Complete ([id number]) Additional Codes JAKE-7 Assessment Billing - JAKE-7 Assessment Tool: JAKE-7 Assessment 43350 ([id number]) PHQ-9 - 11018 - PHQ-9 Billing: Yes ([id number]) Time Spent (min) 65 Comment Direct patient care, completing documentation Assessment & Plan Assessment & Plan (1) New onset atrial fibrillation: Code(s): I48.91 - Unspecified atrial fibrillation Category: Medical Plan: This may explain patient's lightheaded sensation that he has been having for at least several months. I explained the findings of the EKG and increased risk of stroke to the patient. His chads 2 Vasc score is 3. Anticoagulation is recommended. We discussed the risk and benefits, but he firmly declines anticoagulants. He is taking a baby aspirin daily which he will continue, but I advised him that this is not equivalent to recommended treatment with Eliquis. He declines anticoagulation against medical advice. He understands the increased risk of stroke which is associated with morbidity and mortality. 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 Patient was advised to go to the ER if he develops weakness, chest pain, trouble breathing, racing heartbeat or worsening lightheadedness. He agrees. Check labs. (2) Chronic kidney disease, stage 3: Code(s): N18.30 - Chronic kidney disease, stage 3 unspecified Category: Medical Qualifiers: Chronic kidney disease stage 3 subtype: stage 3a (GFR 45-59) Qualified Code(s): N18.31 - Chronic kidney disease, stage 3a Plan: Followed by Nephrology. Avoid nephrotoxic medications. Blood pressure is well- controlled. (3) Hyperlipidemia: Code(s): E78.5 - Hyperlipidemia, unspecified Category: Medical Plan: Patient will continue simvastatin 20 mg daily. Check fasting lipid profile. Increase fiber. Continue efforts at exercise. (4) Hypertension: Code(s): I10 - Essential (primary) hypertension Category: Medical Qualifiers: Hypertension type: primary hypertension Qualified Code(s): I10 - Essential (primary) hypertension Plan: Controlled. Continue current regimen. (5) Elevated PSA: Code(s): R97.20 - Elevated prostate specific antigen [PSA] Category: Medical Plan: Followed by urology. (6) Lightheaded: Code(s): R42 - Dizziness and giddiness Category: Medical Plan: Persistent atrial fibrillation may explain lightheadedness. Given risk factors for peripheral vascular disease I am going to order MRA of the head/neck and labs for additional evaluation. (7) Pancreatic cyst: Code(s): K86.2 - Cyst of pancreas Category: Medical Plan: Due for repeat MRI of the abdomen with and without contrast in March 2027. Plan Follow up in 6 weeks. Orders: Orders Prostate Specific Antigen Today E78.5 - Hyperlipidemia, unspecified, I10 - Essential (primary) hypertension, N18.31 - Chronic kidney disease, stage 3a, R97.20 - Elevated prostate specific antigen [PSA] Complete Blood Count no Diff Today E78.5 - Hyperlipidemia, unspecified, I10 - Essential (primary) hypertension, N18.31 - Chronic kidney disease, stage 3a, R97.20 - Elevated prostate specific antigen [PSA] AMB EKG-In Office Today R42 - Dizziness and giddiness MR angio neck wo con Today R42 - Dizziness and giddiness Lipid Panel Today E78.5 - Hyperlipidemia, unspecified, I10 - Essential (primary) hypertension, N18.31 - Chronic kidney disease, stage 3a, R97.20 - Elevated prostate specific antigen [PSA] Comprehensive Met. Panel Today E78.5 - Hyperlipidemia, unspecified, I10 - Essential (primary) hypertension, N18.31 - Chronic kidney disease, stage 3a, R97.20 - Elevated prostate specific antigen [PSA] UA w Microscopic Today E78.5 - Hyperlipidemia, unspecified, I10 - Essential (primary) hypertension, N18.31 - Chronic kidney disease, stage 3a, R39.9 - Unspecified symptoms and signs involving the genitourinary system, R97.20 - Elevated prostate specific antigen [PSA] MR angio head wo con Today R42 - Dizziness and giddiness TSH reflex Free T4 Today R42 - Dizziness and giddiness Referrals Cardiology Referral I48.91 - Unspecified atrial fibrillation
[2025-04-18 12:06] VITALS: BP 126/82; PULSE 84; TEMP 36.9; O2SAT 95; BMI 29.3
--- OUTSIDE RECORDS SUMMARY | 2025-04-18 13:21 | XMS_ITS | Clinical Summary ---
Author Organization [facility] [address] [facility] Address [address] [place] [address] Phone Care Team Providers Care Porter Bath Name Role Phone Dick, Gary Primary Care Provider [phone] Encounters Date Type Department Care Team Description 03/28/2025 8:57 AM EDT - 03/28/2025 11:59 PM EDT Hospital Encounter [facility] MRI [address] [place] [address] Pancreatic lesion Discharge Disposition: Home [...] Signed Date: 04/02/2025 09:08 ET Workstation ID: [id number] Transcribed By: Self Edit Transcribed Date: 04/02/2025 [...] Signed Date: 04/02/2025 09:08 ET Workstation ID: [id number] Transcribed By: Self Edit Transcribed Date: 04/02/2025 09:00 ET us Roya Dunbar MD IMG MRI PROCEDURES Final Resul t from Last 3 Months Insurance MEDICARE [facility] Care Teams Porter Bath Relationship Specialty Start Date End Date Joel Dick DO [address] [place] [phone] PCP - General Family Medicine 01/07/25
== END 2025-04-18 13:13 | disposition home or self-care (01) ==
PROVIDERS: PCP Physician Assistant Medical; Visit Provider Physician Assistant Medical
DX: I12.9 Hypertensive chronic kidney disease with stage 1 through stage 4 chronic kidney disease, or unspecified chronic kidney disease (principal); I48.91 Unspecified atrial fibrillation; N18.31 Chronic kidney disease, stage 3a; E78.5 Hyperlipidemia, unspecified; R97.20 Elevated prostate specific antigen [PSA]; R42 Dizziness and giddiness; K86.2 Cyst of pancreas

== ENCOUNTER → 2025-04-18 11:50 | Outpatient (BNVA) | payer MEDICARE, SELFPAY | PROVIDERS: PCP Physician Assistant Medical; Visit Provider Physician Assistant Medical | DX: Z76.89 Persons encountering health services in other specified circumstances (principal); I48.91 Unspecified atrial fibrillation; I12.9 Hypertensive chronic kidney disease with stage 1 through stage 4 chronic kidney disease, or unspecified chronic kidney disease; N18.31 Chronic kidney disease, stage 3a; E78.5 Hyperlipidemia, unspecified; R97.20 Elevated prostate specific antigen [PSA]; R42 Dizziness and giddiness; K86.2 Cyst of pancreas; Z79.899 Other long term (current) drug therapy; Z13.31 Encounter for screening for depression; Z13.39 Encounter for screening examination for other mental health and behavioral disorders | CPT/HCPCS: 93005; 96127; 99202 ==

== ENCOUNTER 2025-05-12 09:49 | Outpatient (REF) | payer MEDICARE, SELFPAY ==
--- NOTE | ~2025-05-12 | MR_ITS ---
CLINICAL HISTORY: R42 - Dizziness and giddiness MR Brain without gadolinium Comparison: None provided Findings: No restricted diffusion. No intra-axial mass or hemorrhage. Minimal age-related cerebral hemispheric white matter ischemic changes. No midline shift. No hydrocephalus. Vascular flow voids are intact. The orbits are normal. Mucosal thickening in some of the paranasal sinuses. A few bilateral maxillary sinus polyps/retention cysts. No focal bone lesion. IMPRESSION: No acute infarct. This document has been electronically signed by: Daphne Nguyen MD on 05/13/2025 09:21:35
--- OUTSIDE RECORDS SUMMARY | 2025-05-12 11:28 | XMS_ITS | Clinical Summary ---
Author Organization [facility] [address] [facility] Address [address] [place] [address] Phone Care Team Providers Care Yacht Builder Name Role Phone DickJoel wong DO Primary Care Provider [phone] Encounters Date Type Department Care Team Description 03/28/2025 8:57 AM EDT - 03/28/2025 11:59 PM EDT Hospital Encounter [facility] MRI [address] [place] [address] Pancreatic lesion Discharge Disposition: Home [...] 07/27/2022 Social Influencers of Health Screening 07/27/2022 Depression Screening 08/25/2024 Hypertension/CHF/CAD Annual BMP Blood Test 03/28/2025 COVID-19 Vaccine (1 - 2023-2 5 season) 2025 Influenza Vaccine (#1) 2025 HIB Vaccines Aged [...] Signed Date: 04/02/2025 09:08 ET Workstation ID: [id number] Transcribed By: Self Edit Transcribed Date: 04/02/2025 [...] Signed Date: 04/02/2025 09:08 ET Workstation ID: [id number] Transcribed By: Self Edit Transcribed Date: 04/02/2025 09:00 ET us Roya Dunbar MD IMG MRI PROCEDURES Final Resul t from Last 3 Months Insurance MEDICARE [facility] Care Teams Yacht Builder Relationship Specialty Start Date End Date Joel Dick DO [address] [place] [id number] PCP - General Family Medicine 01/07/25
== END 2025-05-12 09:50 | disposition home or self-care (01) ==
LOC: HO.MRI 09:49
PROVIDERS: PCP Physician Assistant Medical; Visit Provider Physician Assistant Medical
DX: R42 Dizziness and giddiness (principal)
CPT/HCPCS: 70551

== ENCOUNTER 2025-06-09 11:27 | Outpatient (AMB) | payer MEDICARE, SELFPAY ==
--- NOTE | 2025-06-09 11:30 | A.OFFPC_ITS ---
Vital Signs 06/09/25 11:37 Height 5 ft 7 in Weight 183 lb 6 oz BMI 28.7 BP 130/82 Blood Pressure Location Rt brachial Position Sitting Respiration 15 Pulse 69 Pulse Source Pulse Oximeter Temp 97.5 F Temp Source Temporal Artery Scan Pulse Oximetry (%) 95 Oxygen Delivery Method Room Air Intake Visit Reasons: 6weeks Intake Note: Chris presents for a 6 weeks follow up to his Chronic Kidney issues. Allergies No Known Allergies Allergy (Verified 06/09/25 11:35) Medication List - Last Reconciled 06/10/25 by KYLAH Remy amlodipine 5 mg (1/2 x 10 mg) PO DAILY apixaban (Eliquis) 2.5 mg PO BID metoprolol succinate ER 25 mg PO DAILY simvastatin 20 mg PO BEDTIME Tobacco use date assessed: 06/09/25 Fall risk assessment: No Falls in past year Last assessed Fall Risk: 06/09/25 Dental Screening Dental Screen Date: 06/09/25 Did you have a dental visit in the last 12 months?: Yes Did you have a dental problem in the last 6 months where you did not have access to dental care?: No Was dental information given to patient?: Patient has dentist HPI HPI Comments History of Present Illness Details This is an 85-year-old male with a past medical history of a renal cyst, atrial fibrillation, hypertension, CKD stage 3 and hyperlipidemia presenting for follow up. At his initial visit he reported ongoing episodes of lightheadedness. His EKG showed new onset atrial fibrillation with a normal ventricular rate. He initially declined anticoagulation, but he saw his pier hand helper at [facility] subsequently, and he was started on Eliquis 2.5 mg twice daily in underwent successful cardioversion. He also takes metoprolol, simvastatin and amlodipine. His blood pressure is controlled. No history of alcohol abuse, and he is a nonsmoker. He is having an echocardiogram 06/21/2025, carotid artery ultrasound 07/18/2025 and event monitor scheduled soon. Denies palpitations, chest pain, leg swelling, shortness of breath, dizziness or syncope. Hyperlipidemia is treated with simvastatin 20 mg daily. Last LDL was 117. It was recommended that he increase his statin, but he declines to do so. He had severe myalgias on rosuvastatin and atorvastatin. Renal cyst, hypertension, CKD stage 3-followed by Dr. Jerez. Hypertension is controlled. He is on amlodipine 5 mg (half a 10 mg tablet) and metoprolol succinate ER 25 mg daily. Pancreatic cyst-this is being monitored. He brought the MRI abdomen without and with contrast from 04/02/2025 which showed no significant interval change in several nonenhancing fluid signal lesions in the pancreas. 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 Elevated PSA-followed by urology. They attributed this to age. He has a follow up scheduled. He declines all vaccinations for which he is eligible including seasonal influenza vaccine. Eye and dental exams are up to date. ROS: Constitutional: No unexplained weight loss, fever, chills, fatigue or night sweats. Respiratory: No shortness of breath, cough or sputum production. Cardiovascular: No chest pain, chest pressure or chest discomfort. No palpitations or pedal edema. Neurologic: No headache, seizures, tremors, unilateral weakness, numbness, tingling, difficulty speaking Hematologic/Lymphatics: No bleeding or bruising. Physical exam: Constitutional: Alert, in no distress. Neck: Supple, Full range of motion. No lymphadenopathy. No palpable thyroid masses. Respiratory: Clear to auscultation. Cardiovascular: S1 S2 regular. No murmurs. No carotid bruits. Extremities: Warm and well perfused. No clubbing, cyanosis or edema. Psychiatric: Normal mood and affect [facility] Medical History (Updated 04/18/25 @ 13:55 by KYLAH Remy) Pancreatic cyst New onset atrial fibrillation Lightheaded Elevated PSA History of kidney stones Hypertension Hyperlipidemia History of colon polyps Chronic kidney disease, stage 3 Surgical History H/O colonoscopy Family History Father Diabetes Pancreatic cancer Social History (Updated 06/09/25 @ 11:37 by Radha Dumont CMA) Housing: House Alcohol intake: current Patient Tobacco Use Status: Never used Tobacco e-Cigarette/Vaping Use: Never Used Second Hand Smoke Exposure: No service: No Current occupational status: retired Current occupational exposures/hazards: No Cognitive needs: No Hearing needs: No Vision needs: No Questionnaire Thrive Questionnaire Date Thrive assessed: 04/11/25 I am a: Patient What is your living situation today?: I have a steady place to live Within the past 12 months, did the food you bought not last and you didn't have the money to get more?: Never true Within the past 12 months, did you worry whether your food would run out before you got money to buy more?: Never true Do you have trouble paying for medicines?: No Do you have trouble getting transportation to medical appointments?: No Do you have trouble paying your heating and electricity bill?: No Do you have trouble taking care of your child, family member or friend?: No Do you have trouble with day-to-day activities such as bathing, preparing meals, shopping, managing finances, etc.?: No Are you currently unemployed and looking for a job?: No Are you interested in more education?: Yes Please select the resources that you would like help with: None Currently or been in a relationship where the following occur: No concerns reported THRIVE Score: 0 JAKE-7 AMB Questionnaire JAKE-7 Date JAEK - 7 assessed: 04/18/25 Source: Developed by Drs. Cristi Osullivan, Reshma Lopez, Lele Sanchez and colleagues, with an educational rolan from [employer]. Physical exam (Primary Care) Vital Signs: Last Vital Signs Temp 97.5 F 06/09/25 11:37 Pulse 69 06/09/25 11:37 Resp 15 06/09/25 11:37 BP 130/82 06/09/25 11:37 Pulse Ox 95 06/09/25 11:37 Oxygen Delivery Method Room Air 06/09/25 11:37 BMI result Body Mass Index 28.7 Tobacco/Smoking Status: Tobacco use Status Tobacco use date assessed 06/09/25 06/09/25 11:39 Patient Tobacco Use Status Never used Tobacco 06/09/25 11:37 e-Cigarette/Vaping Use Never Used 06/09/25 11:37 Thrive Assessment: Date of Thrive Assessment Date Thrive assessed 04/11/25 06/09/25 11:31 Currently or been in a relationship where the following occur: No concerns reported Coding Level of Care Code Est Pt Level 4 (11109) Complex EM visit Add On G2211 Diagnoses New onset atrial fibrillation I48.91 Stage 3a chronic kidney disease N18.31 Chronic kidney disease stage 3 subtype: stage 3a (GFR 45-59) Hyperlipidemia E78.5 Primary hypertension I10 Hypertension type: primary hypertension Elevated PSA R97.20 Pancreatic cyst K86.2 Assessment & Plan Assessment & Plan (1) New onset atrial fibrillation: Code(s): I48.91 - Unspecified atrial fibrillation Category: Medical Plan: Patient is followed by Cardiology. He underwent successful cardioversion. He will proceed with further diagnostic tests including echo, carotid artery ultrasound and event monitor. He will continue amlodipine, metoprolol, simvastatin and Eliquis. (2) Chronic kidney disease, stage 3: Code(s): N18.30 - Chronic kidney disease, stage 3 unspecified Category: Medical Qualifiers: Chronic kidney disease stage 3 subtype: stage 3a (GFR 45-59) Qualified Code(s): N18.31 - Chronic kidney disease, stage 3a Plan: Followed by Nephrology. Avoid nephrotoxic medications. Blood pressure is well- controlled. (3) Hyperlipidemia: Code(s): E78.5 - Hyperlipidemia, unspecified Category: Medical Plan: Patient will continue simvastatin 20 mg daily. Check fasting lipid profile. Increase fiber. Continue efforts at exercise. (4) Hypertension: Code(s): I10 - Essential (primary) hypertension Category: Medical Qualifiers: Hypertension type: primary hypertension Qualified Code(s): I10 - Essential (primary) hypertension Plan: Controlled. Continue current regimen. (5) Elevated PSA: Code(s): R97.20 - Elevated prostate specific antigen [PSA] Category: Medical Plan: Followed by urology. (6) Pancreatic cyst: Code(s): K86.2 - Cyst of pancreas Category: Medical Plan: Due for repeat MRI of the abdomen with and without contrast in March 2027. Plan Follow up in 6 months for Medicare wellness visit.
[2025-06-09 11:37] VITALS: BP 130/82; PULSE 69; RESP 15; TEMP 36.4; O2SAT 95; BMI 28.7
--- OUTSIDE RECORDS SUMMARY | 2025-06-09 14:47 | XMS_ITS | Clinical Summary ---
Author Organization [facility] [address] [facility] Address [address] [place] [address] Phone Care Team Providers Care Shrinker Name Role Phone DickJoel wong DO Primary Care Provider [phone] Encounters Date Type Department Care Team Description 03/28/2025 8:57 AM EDT - 03/28/2025 11:59 PM EDT Hospital Encounter [facility] MRI [address] [place] [address] Pancreatic lesion Discharge Disposition: Home [...] Dictated Date: 04/02/2025 08:47 ET Assigned Physician: Marshlal Jeff Reviewed and Electronically Signed By: Marshall Jeff Signed Date: 04/02/2025 09:08 ET Workstation ID: [id number] Transcribed By: Self Edit Transcribed Date: 04/02/2025 [...] Signed Date: 04/02/2025 09:08 ET Workstation ID: [id number] Transcribed By: Self Edit Transcribed Date: 04/02/2025 09:00 ET us Roya Dunbar MD IMG MRI PROCEDURES Final Resul t from Last 3 Months Insurance MEDICARE [facility] Care Teams Shrinker Relationship Specialty Start Date End Date Joel Dick DO [address] [place] [phone] PCP - General Family Medicine 01/07/25
== END 2025-06-09 12:10 | disposition home or self-care (01) ==
LOC: HO.HMCFM 11:29
PROVIDERS: PCP Physician Assistant Medical; Visit Provider Physician Assistant Medical
DX: I48.91 Unspecified atrial fibrillation (principal); N18.31 Chronic kidney disease, stage 3a; E78.5 Hyperlipidemia, unspecified; I10 Essential (primary) hypertension; R97.20 Elevated prostate specific antigen [PSA]; K86.2 Cyst of pancreas

== ENCOUNTER → 2025-06-09 11:27 | Outpatient (BNVA) | payer MEDICARE, SELFPAY | PROVIDERS: PCP Physician Assistant Medical; Visit Provider Physician Assistant Medical | DX: I48.91 Unspecified atrial fibrillation (principal); I12.9 Hypertensive chronic kidney disease with stage 1 through stage 4 chronic kidney disease, or unspecified chronic kidney disease; N18.31 Chronic kidney disease, stage 3a; E78.5 Hyperlipidemia, unspecified; R97.20 Elevated prostate specific antigen [PSA]; K86.2 Cyst of pancreas; Z79.01 Long term (current) use of anticoagulants; Z79.899 Other long term (current) drug therapy; Z28.21 Immunization not carried out because of patient refusal | CPT/HCPCS: 99212 ==

== ENCOUNTER 2025-07-29 11:21 | Outpatient (AMB) | payer MEDICARE, SELFPAY ==
--- NOTE | 2025-07-29 11:23 | HO.NEPHOV_ITS ---
Vital Signs 07/29/25 11:26 Height 5 ft 7 in Weight 190 lb 4 oz BMI 29.8 BP 120/70 Blood Pressure Location Lt brachial Position Sitting Pulse 73 Pulse Source Pulse Oximeter Pulse Oximetry (%) 96 Oxygen Delivery Method Room Air Intake Visit Reasons: 3mon f/u w/labs-LVM Palliative Care Nurse Practitioner Required: No Accompanied by: Self / Same As Patient Allergies No Known Allergies Allergy (Verified 07/29/25 11:26) HPI Comments Details: I had the privilege of seeing Stanislaw Zepeda, who prefers to be known as Chris in follow up for his chronic kidney disease and labile hypertension. He is known to have hypertension for a long time. his blood pressure is currently at goal on current medications. He keeps track of his serum creatinine and blood pressure for the last 15 years. He has no history of hypokalemia, uncontrolled thyroid disorders, hypercalcemia, obstructive sleep apnea, hematuria or pedal edema. He has history of nephrolithiasis. He does not take any excessive nonsteroidal anti-inflammatories. He is cautious with his sodium in the diet. He has no history of coronary artery disease, carotid stenosis, congestive heart failure, CVA, peripheral arterial disease. He is compliant with his medications. He has a renal cyst which he undergoes surveillance ultrasound and it has unchanged its characteristics. He is quite active. He otherwise feels well. [facility] Medical History (Updated 04/18/25 @ 13:55 by KYLAH Remy) Pancreatic cyst New onset atrial fibrillation Lightheaded Elevated PSA History of kidney stones Hypertension Hyperlipidemia History of colon polyps Chronic kidney disease, stage 3 Surgical History H/O colonoscopy Family History Father Diabetes Pancreatic cancer Social History (Updated 06/09/25 @ 11:37 by Radha Dumont CMA) Housing: House Alcohol intake: current Patient Tobacco Use Status: Never used Tobacco e-Cigarette/Vaping Use: Never Used Second Hand Smoke Exposure: No service: No Current occupational status: retired Current occupational exposures/hazards: No Cognitive needs: No Hearing needs: No Vision needs: No Review of Systems Const All systems reviewed & are unremarkable except as noted in HPI and below Physical Exam Const General: comfortable and no acute distress Orientation/consciousness: patient oriented x3 HEENT Head: Yes normocephalic Mouth: Normal oral and palatal mucosa present Eyes EOM: EOMs intact bilaterally Neck Neck: Yes supple Resp Auscultation: clear to auscultation bilaterally Cardio Jugular venous distension: no JVD Rate: regular rate GI Palpation (GI): Soft to palpation Auscultation: normal bowel sounds General: Yes no CVA tenderness Back/Spine/Pelvis Back: no CVA tenderness Skin General skin exam: no rashes or lesions noted Neuro General: patient oriented x3 and moves all extremities Extrem General: Yes no pedal edema Assessment & Plan Assessment & Plan (1) Hypertension: Code(s): I10 - Essential (primary) hypertension Category: Medical Qualifiers: Hypertension type: primary hypertension Qualified Code(s): I10 - Essential (primary) hypertension (2) Chronic kidney disease, stage 3: Code(s): N18.30 - Chronic kidney disease, stage 3 unspecified Category: Medical Qualifiers: Chronic kidney disease stage 3 subtype: stage 3a (GFR 45-59) Qualified Code(s): N18.31 - Chronic kidney disease, stage 3a (3) Renal cyst: Code(s): N28.1 - Cyst of kidney, acquired Category: Medical Plan Chris has hypertension for a long time. 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 His renal functions are at baseline. His blood pressure is at goal and he should continue current dose of antihypertensive medications. He most likely will need ultrasound of the renal arteries in the future which I plan to order with time. He has not known to have congestive heart failure or coronary artery disease. He should be on a low-sodium diet given history of hypertension and nephrolithiasis. He may have to initiate him on chlorthalidone which should benefit his blood pressure and renal stones( if his BP goes up). Answered all his questions. Follow-up appointment given Orders: Orders Electrolytes 6 Months I10 - Essential (primary) hypertension, N18.31 - Chronic kidney disease, stage 3a, N28.1 - Cyst of kidney, acquired Protein Creatinine Ratio, Ur 6 Months I10 - Essential (primary) hypertension, N18.31 - Chronic kidney disease, stage 3a, N28.1 - Cyst of kidney, acquired Creatinine 6 Months I10 - Essential (primary) hypertension, N18.31 - Chronic kidney disease, stage 3a, N28.1 - Cyst of kidney, acquired Blood Urea Nitrogen 6 Months I10 - Essential (primary) hypertension, N18.31 - Chronic kidney disease, stage 3a, N28.1 - Cyst of kidney, acquired Coding Level of Care Code Est Pt Level 4 (44191) Diagnoses Primary hypertension I10 Hypertension type: primary hypertension Stage 3a chronic kidney disease N18.31 Chronic kidney disease stage 3 subtype: stage 3a (GFR 45-59) Renal cyst N28.1
[2025-07-29 11:26] VITALS: BP 120/70; PULSE 73; O2SAT 96; BMI 29.8
== END 2025-07-29 11:54 | disposition home or self-care (01) ==
LOC: HO.HKA 11:21
PROVIDERS: PCP Family Medicine; Visit Provider Internal Medicine Nephrology
DX: I10 Essential (primary) hypertension (principal); N18.31 Chronic kidney disease, stage 3a; N28.1 Cyst of kidney, acquired
CPT/HCPCS: 99214

== ENCOUNTER → 2025-07-29 11:21 | Outpatient (BNVA) | payer MEDICARE, SELFPAY | PROVIDERS: PCP Family Medicine; Visit Provider Internal Medicine Nephrology | DX: I10 Essential (primary) hypertension (principal); N18.31 Chronic kidney disease, stage 3a; N28.1 Cyst of kidney, acquired | CPT/HCPCS: 99212 ==